=== PATIENT | female | born 1960 | race Caucasian/White ===

== ENCOUNTER → 2018-09-03 | Day surgery (SDC) | payer BC ==
[2018-09-01 14:29] VITALS: BMI 25.7
[~2018-09-03] MED LIST: DEXAMETHASONE SOD PHOSPHATE 10 MG/ML 1 ML VIAL IV ONE; HYDROmorphone 0.5 MG/0.5 ML SYRINGE IVP PRN; LACTATED RINGERS 1,000 ML IV SCH; LIDOCAINE 1% 20 ML VIAL (10MG/ML) FOR IV START INTRADERMA ONE; LIDOCAINE 1% INJ 10MG/ML (20 ML MDV) ONE; MIDAZOLAM 2 MG/2 ML VIAL ONE; OFLOXACIN 0.3% OTIC DROPS 5 ML BTL RIGHT EAR ONE; ONDANSETRON 4 MG/2 ML VIAL IVP ONE; PROPOFOL 10 MG/ML 20 ML VIAL IV ONE; Pre Op ABX Message 1 EACH MISC MISCELLANE ONE; SCOPOLAMINE 1.5MG/72HR PATCH TRANSDERM ONE; fentaNYL (PF) 50 MCG/ML 2 ML AMP ONE
--- NOTE | 2018-09-03 05:35 | HP ---
HISTORY AND PHYSICAL CHIEF COMPLAINT: Bilateral eustachian tube dysfunction. HISTORY OF PRESENT ILLNESS: This patient is a pleasant 58-year-old female who was recently seen in my office for evaluation of possible insertion of ventilation tubes. The patient has a history of having otosclerosis in the left ear and presented today complaining of having a history of having pressure in the right ear and now apparently she has pressure in the right ear also. She has been seen at the [facility] by cook [facility]. Although her otosclerosis is being followed and watched at this time, it was suggested that she might benefit from a trial of ventilation tubes. This was discussed with the patient and the patient was advised that it may or may not help relieve the pressure sensation in her ears. However, she decided she would like to try anyway with that understanding that if the tubes do not work or if they seem to make her hearing worse the tubes can be removed. PAST MEDICAL HISTORY: Past medical history reveals patient has no allergies. Current medications include Synthroid. Previous surgery includes a left laser stapedectomy. REVIEW OF SYSTEMS: The review of systems is positive only with respect to the metabolic endocrine system which is positive for hypothyroidism. The remainder of the review of systems is essentially unremarkable. The patient is a 0 para, 0 , 0 miscarriage. PHYSICAL EXAMINATION: This patient is a 58-year-old female who was alert and cooperative. HEENT EXAMINATION: Patient is normocephalic. Tympanic membranes are retracted. Pupils equal, round, and reactive to light and accommodation. Extraocular movements are within normal limits. Intranasal examination reveals moderate septal deviation with compensatory hypertrophy of the inferior turbinates and a moderate amount of clear mucus on the mucous membranes and draining down the posterior pharynx. Examination of oropharynx, palpation of the neck, cranial nerves 2 through 12 and the remainder of the head and neck exam are all within normal limits. CHEST/CARDIOVASCULAR: Both lung [place] are clear to percussion and auscultation. The patient is in regular sinus rhythm. S1 and S2 are present without evidence of any murmurs, S3s or S4. Peripheral pulses are bilaterally symmetrical and within normal limits. ABDOMEN: There is no evidence of any masses, megaly, or tenderness. The abdomen is soft. SKIN: Is unremarkable. MUSCULOSKELETAL AND NEUROLOGICAL: Are within normal limits. PELVIC/RECTAL EXAM: The pelvic rectal exam is deferred at this time because the patient has this done on a regular basis at her family physician's office. The remainder of physical exam is unremarkable. IMPRESSION: Chronic bilateral eustachian tube dysfunction. PLAN: The patient is scheduled to undergo bilateral myringotomy with insertion of ventilation tubes under IV sedation with MAC in a.m. ATTENTION RNS IN THE PRE-SURGICAL AREA: I have not ordered any pre-surgical medications or pre-surgical prophylactic antibiotics for this patient. If the pharmacy department sends any pre-surgical prophylactic antibiotics to the pre-surgical area for this patient, that order should be cancelled and the medication should be returned to the pharmacy department. Please make sure that the patient's account is credited appropriately. I have discussed the risks, benefits and alternative therapies for the above-mentioned procedure and for both sedation/analgesia as well as necessary blood product administration, if indicated, as they pertain to this patient. The patient has indicated his or her understanding and acceptance of the risks and procedures discussed. MMBRIDGETL / IJN: [id number] /
[2018-09-03 13:32] VITALS: TEMP 98
[2018-09-03 14:28] VITALS: RESP 17
[2018-09-03 14:50] VITALS: BP 143/82; PULSE 79
--- NOTE | 2018-09-05 17:03 | OP ---
OPERATIVE REPORT DATE OF SURGERY: 09/03/2018 PREOPERATIVE DIAGNOSIS: Right eustachian tube dysfunction. POSTOPERATIVE DIAGNOSIS: Right eustachian tube dysfunction. ANESTHESIA: IV sedation with MAC. OPERATIVE PROCEDURE: Right myringotomy with insertion of a Dixon ventilation tube. SURGEON: Dr. Granados. COMPLICATIONS: None. DETAILS OF PROCEDURE: The patient was placed on operating table in the supine position and after uneventful IV sedation, satisfactory sedation was obtained. Next, using the Zeiss operating microscope and a #3 aural speculum, the right external auditory canal was cleansed of all wax and debris. Next, the myringotomy knife was used to make an incision in the right tympanic membrane in the anterior-inferior quadrant. Following this, a Dixon type of ventilation tube was inserted through the previously made myringotomy incision without difficulty. 10 drops of ofloxacin antibiotic ear drops were placed in the right external auditory canal. At this point, the procedure was terminated. There were no intraoperative complications. The patient tolerated procedure well and was returned to the recovery room in satisfactory condition. MMODL / IJN: [id number] /
== END ==
LOC: OR 09:40
PROVIDERS: ATTEND Otolaryngology
DX: H69.91 Unspecified Eustachian tube disorder, right ear (principal); H80.93 Unspecified otosclerosis, bilateral; E03.9 Hypothyroidism, unspecified; Z98.890 Other specified postprocedural states; Z79.890 Hormone replacement therapy; Z79.1 Long term (current) use of non-steroidal anti-inflammatories (NSAID)
CPT/HCPCS: 69436; J2250; J1100; J2405; J2001; J3010; J2704

== ENCOUNTER 2021-08-13 07:10 | Day surgery (SDC) | payer BC ==
[2021-08-12 08:50] VITALS: BMI 24.9
[~2021-08-13 07:10] MED LIST changes: -DEXAMETHASONE SOD PHOSPHATE 10 MG/ML 1 ML VIAL IV ONE; -HYDROmorphone 0.5 MG/0.5 ML SYRINGE IVP PRN; +LIDOCAINE 1% (10MG/ML) FOR IV START INTRADERMA PRN; -LIDOCAINE 1% 20 ML VIAL (10MG/ML) FOR IV START INTRADERMA ONE; -LIDOCAINE 1% INJ 10MG/ML (20 ML MDV) ONE; -MIDAZOLAM 2 MG/2 ML VIAL ONE; -OFLOXACIN 0.3% OTIC DROPS 5 ML BTL RIGHT EAR ONE; -ONDANSETRON 4 MG/2 ML VIAL IVP ONE; -PROPOFOL 10 MG/ML 20 ML VIAL IV ONE; -Pre Op ABX Message 1 EACH MISC MISCELLANE ONE; -SCOPOLAMINE 1.5MG/72HR PATCH TRANSDERM ONE; -fentaNYL (PF) 50 MCG/ML 2 ML AMP ONE
[2021-08-13 08:12] VITALS: TEMP 96.2
[2021-08-13] MEDS ORDERED: ONDANSETRON 4 MG/2 ML VIAL IVP ONE (08:22)
[2021-08-13] MEDS ORDERED: ONDANSETRON 4 MG/2 ML VIAL ONE (08:23)
[2021-08-13] MEDS ORDERED: LIDOCAINE 2% INJ 20 MG/ML (2 ML VIAL) ONE (09:01)
[2021-08-13] MEDS ORDERED: PROPOFOL 10 MG/ML 20 ML VIAL IV ONE (09:01)
--- NOTE | 2021-08-13 09:19 | P.PCN ---
Date of Procedure: 08/13/21 Procedure(s) Performed: BRIEF HISTORY: Patient is a 61-year-old pleasant female scheduled for an elective colonoscopy as a part of evaluation of prior history of colon polyps and family history of colon cancer. Her father was diagnosed with colon cancer at age 70. PROCEDURE PERFORMED: Colonoscopy with biopsy and snare polypectomy and Endo Clip placement. PREOPERATIVE DIAGNOSIS: History of colon polyps and family history of colon cancer. IV sedation per Anesthesia. PROCEDURE: After informed consent was obtained, the patient, was brought into the endoscopy unit. IV sedation was administered by Anesthesia under continuous monitoring. Digital rectal examination was normal. Initially the Olympus CF-160 flexible video colonoscope was then inserted in the rectum, gradually advanced into the cecum without any difficulty. Careful examination was performed as the scope was gradually being withdrawn. Ileocecal valve and the appendiceal orifice were visualized and appeared normal. Prep was excellent. Mucosa of the cecum, a 3 mm small polyp removed by snare polypectomy. In the hepatic flexure there was a 1.5 cm broad-based polyp removed by snare polypectomy followed by Endo Clip placement. Adjacent to this area there were 2 polyps measuring 5 mm in size removed by snare polypectomy rest of the an Endo Clip placement ascending colon, transverse colon, descending colon, sigmoid colon, and rectum appeared normal. Retroflexion was performed in the rectum and no lesions were seen. The patient tolerated the procedure well. IMPRESSION: 3 Millimeters cecal polyp status post cold biopsy 5 mm x2 and 1.5 cm broad-based hepatic flexure polyp status post polypectomy followed by Endo Clip placement RECOMMENDATIONS: Findings of this examination were discussed with the patient as well as a family. She was advised to follow with the biopsy results. If the biopsies adenoma she can have a repeat colonoscopy in 3 years..
[2021-08-13 09:53] VITALS: BP 145/74; PULSE 51; RESP 15
--- NOTE | 2021-08-19 14:21 | CDI ---
Documentation Clarification Form Date: 08/19/2021 02:16:06 PM From: Jessie Osuna Phone: Admit Date: 08/13/2021 07:10:00 AM Patient Name: Donna Atwood Visit Number: [id number] Discharge Date: Payor: [facility] Dear Dr. Maradiaga, Please provide clarification as to the method of biopsy for the cecal polyp. Procedure not in body states polypectomy by snare. Procedure under impression states cold biopsy, Please clarify. Please respond under the line at the bottom. Thank you for your kind consideration. ___ Changes made in procedure note Dr.K Maradiaga MTDD
== END 2021-08-13 10:25 | disposition home or self-care (01) ==
LOC: ORWHC2ENDO 07:10
PROVIDERS: ATTEND Internal Medicine Gastroenterology
DX: Z12.11 Encounter for screening for malignant neoplasm of colon (principal); D12.0 Benign neoplasm of cecum; D12.3 Benign neoplasm of transverse colon; K63.5 Polyp of colon; Z86.010 Personal history of colon polyps; Z80.0 Family history of malignant neoplasm of digestive organs; Z79.890 Hormone replacement therapy; Z79.899 Other long term (current) drug therapy; I10 Essential (primary) hypertension; E78.5 Hyperlipidemia, unspecified; E07.9 Disorder of thyroid, unspecified
CPT/HCPCS: 88305; 45380; 45385; J2405; J2704; J2001

== ENCOUNTER → 2023-01-26 | Outpatient (CLI) | payer BC ==
--- NOTE | 2023-01-26 14:01 | US ---
EXAMINATION TYPE: US carotid duplex BILAT DATE OF EXAM: 01/26/2023 COMPARISON: NONE CLINICAL INDICATION: Female, 62 years old with history of R55 SYNCOPE COLLAPSE; TECHNIQUE: Carotid duplex ultrasound examination. Indirect Doppler criteria was utilized. FINDINGS: EXAM MEASUREMENTS: RIGHT: Peak Systolic Velocity (PSV) cm/sec ----- Right CCA: 76.4 ----- Right ICA: 77.9 ----- Right ECA: 130.2 ICA/CCA ratio: 1.0 RIGHT: End Diastole cm/sec ----- Right CCA: 21.2 ----- Right ICA: 24.1 ----- Right ECA: 21.2 LEFT: Peak Systolic Velocity (PSV) cm/sec ----- Left CCA: 79.6 ----- Left ICA: 65.1 ----- Left ECA: 92.8 ICA/CCA ratio: 0.8 LEFT: End Diastole cm/sec ----- Left CCA: 21.4 ----- Left ICA: 24.1 ----- Left ECA: 14.8 VERTEBRALS (direction of flow): Right Vertebral: Antegrade Left Vertebral: Antegrade Rhythm: Normal PHOTOGRAPH MOUNTER NOTES: No significant stenosis seen IMPRESSION: No evidence for hemodynamically significant stenosis Criteria for Assigning % of Stenosis / Diameter reduction (Estimation based on the indirect measurements of the internal carotid artery velocities (ICA PSV). 1. Normal (no stenosis)=ICA PSV < 125 cm/s: ratio < 2.0: ICA EDV<40 cm/s. 2. Less than 50% stenosis=ICA PSV < 125 cm/s: ratio < 2.0: ICA EDV<40 cm/s. 3. 50 to 69% stenosis=ICA PSV of 125 to 230 cm/s: ration 2.0 ? 4.0: ICA EDV 40-100 cm/s. 4. Greater than 70% stenosis to near occlusion= ICA PSV > 230 cm/s: ratio > 4.0: ICA EDV > 100 cm/s. 5. Near occlusion= ICA PSV velocities may be low or undetectable: variable ratio and ICA EDV. 6. Total occlusion=unable to detect flow.
== END | disposition home or self-care (01) ==
LOC: RADUSWWP 10:53
PROVIDERS: ATTEND Family Medicine
DX: R55 Syncope and collapse (principal)
CPT/HCPCS: 93880

== ENCOUNTER → 2024-01-12 | Outpatient (CLI) | payer BC ==
--- NOTE | 2024-01-12 10:35 | CT ---
EXAMINATION TYPE: CT soft tissue neck wo/w con CT DLP: 738.40 mGycm, Automated exposure control for dose reduction was used. DATE OF EXAM: 01/12/2024 10:27 AM COMPARISON: Carotid ultrasound 01/26/2023. CLINICAL INDICATION:Female, 63 years old with history of R59.0 ENLARGED LYMPH NODES; PHH, Pt has palp able LT lateral cervical mass vs node infra-auricularly with LT ear pressure. Area marked by BB Prior sx on LT ear. TECHNIQUE: Standard CT of the neck before and after the uneventful intravenous administration of 100 cc of Isovue 300. Axial sections with coronal and sagittal reformats were obtained. FINDINGS: Brain: Visualized portions are grossly unremarkable. Orbits: Right aphakia. Sinuses: Grossly unremarkable. Suprahyoid Neck: The oropharynx, oral cavity, parapharyngeal and retropharyngeal spaces are clear and symmetric. The nasopharynx is unremarkable. Infrahyoid Neck: The larynx, hypopharynx, and supraglottic area are clear and symmetric. Parotid Glands: Unremarkable. Submandibular Glands: Unremarkable. Musculoskeletal: No acute osseous pathology. 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 Lymph nodes: No enlarged lymph nodes are identified. No abnormality identified at the marker. Vascular structures: Visualized major arteries are patent without evidence of aneurysm. Thoracic Inlet/airway: Airway is patent. The lung apices are clear. Soft tissues/Thyroid: The soft tissues are unremarkable. Small thyroid gland. Other: none. IMPRESSION No CT evidence for lymphadenopathy or significant abnormality. [facility] [place], , 01/12/2024 10:33 AM
== END | disposition home or self-care (01) ==
LOC: RADCTMAIN 09:54
PROVIDERS: ATTEND Otolaryngology
DX: M50.30 Other cervical disc degeneration, unspecified cervical region (principal); H27.01 Aphakia, right eye; R59.0 Localized enlarged lymph nodes
CPT/HCPCS: 70492; Q9967